=== PATIENT | female | born 1985 | race Caucasian/White ===

== ENCOUNTER 2017-10-31 05:28 | Day surgery (SDC) | payer MEDICAID ==
[~2017-10-31] VITALS: Ht 151.1 cm; Wt 89.0 kg
[2017-10-31] VITALS (7 sets, daily range): BP systolic 99–127; BP diastolic 59–89; PULSE 69–91; TEMP 97.7–98.2
[2017-10-31] MEDS ORDERED: WELLBUTRIN XL150 MG PO (05:48)
[2017-10-31] MEDS ORDERED: PERCOCET 325 MG1 TA2 PO (09:59)
[2017-10-31] MEDS ORDERED: MOTRIN 800800 MG/TAB PO (09:59)
[2017-10-31 15:37] LABS: HIV 1/2 Antibodies Non-Reactive; HIV-1p24 Antigen Non-Reactive
[2017-11-01 00:02] LABS: HEPATITIS B SURFACE ANTIGEN Negative (()); HEPATITIS C VIRUS ANTIBODY Negative (())
== END 2017-10-31 15:50 | disposition home or self-care (01) ==
LOC: SDCO 05:28
PROVIDERS: Internal Medicine Infectious Disease
DX: D25.1 Intramural leiomyoma of uterus (principal); N94.6 Dysmenorrhea, unspecified; N73.6 Female pelvic peritoneal adhesions (postinfective); N80.9 Endometriosis, unspecified; K66.8 Other specified disorders of peritoneum; Z22.322 Carrier or suspected carrier of Methicillin resistant Staphylococcus aureus; F17.210 Nicotine dependence, cigarettes, uncomplicated
CPT/HCPCS: A4314; J1100; J1885; J2405; J2704; J2710; J2765; J3010; J7120

== ENCOUNTER 2021-11-09 06:44 | Day surgery (SDC) | payer MEDICAID ==
[~2021-11-09] VITALS: Ht 149.9 cm; Wt 96.1 kg
[~2021-11-09 06:44] MED LIST: MOTRIN 800800 MG/TAB PO; PERCOCET 325 MG1 TA2 PO; WELLBUTRIN XL150 MG PO
[2021-11-09 07:00] VITALS: BP 142/99; PULSE 77; TEMP 97.4
[2021-11-09 08:08] VITALS: BP 134/84; PULSE 77; TEMP 97.2
--- NOTE | 2021-11-09 08:08 | NUR ---
PATIENT RETURNED TO BAY 2 AFTER PROCEDURE. ASSIST TO CHAIR X 2 WITH NO DIFFICULTY. PATIENT REQUESTS GRAPE JUICE AND MUFFIN.
[2021-11-09 08:23] VITALS: BP 129/91; PULSE 74
[2021-11-09 08:38] VITALS: BP 134/89; PULSE 78
--- NOTE | 2021-11-09 08:38 | NUR ---
PATIENT'S MOTHER AT BEDSIDE TO HEAR DISCHARGE INSTRUCTIONS. PATIENT VERBALIZED UNDERSTANDING. PATIENT DISCHAGED VIA WHEELCHAIR. SHE WAS ABLE TO AMBULATE TO THE CAR WITH NO ASSISTANCE.
--- NOTE | 2021-11-09 09:18 | NUR ---
PATIENT UP TO USE THE RESTROOM. IV DISCONTINUED AND PATIENT ABLE TO GET DRESSED TO AWAIT DISCHARGE INSTRUCTIONS.
== END 2021-11-09 08:48 | disposition home or self-care (01) ==
LOC: SDCO 06:44
DX: K21.00 Gastro-esophageal reflux disease with esophagitis, without bleeding (principal); R19.7 Diarrhea, unspecified; R19.4 Change in bowel habit; R14.0 Abdominal distension (gaseous); Z83.71 Family history of colonic polyps; Z87.891 Personal history of nicotine dependence; Z79.899 Other long term (current) drug therapy
CPT/HCPCS: J2704; J7120